=== PATIENT | female | born 1990 | race Caucasian/White ===

== ENCOUNTER 2017-11-24 13:05 | Emergency (ER) | payer MEDICAID ==
[~2017-11-24] VITALS: Ht 157.5 cm; Wt 85.7 kg
[2017-11-24 13:22] VITALS: BP 132/85; Ht 157.5 cm; Wt 85.7 kg
== END 2017-11-24 15:55 | disposition home or self-care (01) ==
LOC: ED 13:05
DX: R51 Headache (principal); R03.0 Elevated blood-pressure reading, without diagnosis of hypertension
CPT/HCPCS: J1885; J7512; J8597